=== PATIENT | male | born 1960 | race Caucasian/White ===

== ENCOUNTER 2023-05-29 18:44 | Emergency (ER) | payer OTHER ==
[2023-05-29] MEDS: Albuterol/Ipratropium 3.0-0.5 MG/3 ML Neb Soln NEB ONE (18:14)
[2023-05-29] MEDS: Albuterol/Ipratropium 3.0-0.5 MG/3 ML Neb Soln ONE (18:25)
[2023-05-29] MEDS: Albuterol 0.083% 2.5 MG/3 ML Neb Soln NEB ONE ×2 (18:41→19:54)
[2023-05-29] MEDS: predniSONE 10 MG Tab PO ONE (19:47)
== END 2023-05-29 20:10 | disposition home or self-care (01) ==
LOC: KA.ED 18:44
DX: T59.91XA Toxic effect of unspecified gases, fumes and vapors, accidental (unintentional), initial encounter (principal); J45.41 Moderate persistent asthma with (acute) exacerbation; Z79.899 Other long term (current) drug therapy
CPT/HCPCS: 71046; 94640; 99285; J7512; J7613-GY; J7620-GY